=== PATIENT | female | born 1935 | race Caucasian/White ===

== ENCOUNTER → 2016-11-01 | Outpatient (CLI) | payer OTHER ==
--- NOTE | 2016-11-01 14:19 | MA ---
Screening Digital Mammogram Clinical Indications: Routine screening. Personal history of breast cancer x2 Technique: Standard cephalocaudal and mediolateral oblique projections were obtained. This examinat ion was processed by the [email or web address] computer aided detection system. Comparison: September 2015, August 2014, July 2013 and July 2012. Breast density: C; The breast tissue is moderately dense. Findings: CAD was reviewed. No suspicious findings are identified. Impression: Negative mammogram. BI-RADS 1. Recommendation: Routine screening is recommended in one year, as long as physical examination is taty ign in this patient with extremely dense breast parenchyma. [facility] will send a result letter to the patient. Negative mammography should not preclude additional workup of a clinically suspicious finding. The patient's information is entered into a reminder system with a target due date for her next mammo gram.
--- NOTE | 2016-11-01 15:40 | DX ---
DEXA Bone Mineral Densitometry Clinical Indications: Postmenopausal, post hysterectomy and oophorectomy history of fracture, Synthr oid for thyroid dysfunction, breast cancer Comparison: None Technique: Bone Mineral Densitometry (BMD) by Dual Energy X-Ray Absorptiometry (DEXA) was performed utilizing the [employer] scanner. The lumbar spine was evaluated in the AP projection. The bilat eral hips and forearm were evaluated in the AP projection. Vertebral fracture assessment was also pe rformed. AP Lumbar Spine: The L1, L2 and L3 vertebral bodies were evaluated. L4 is excluded due to degenerati ve sclerosis. BMD: 1.093 gm/cm2 T-score: -0.7 SD Z-score: 1.0 SD AP Left Hip: Total BMD: 0.870 gm/cm2 T-score: -1.1 SD Z-score: 0.8 SD AP Right Hip: Neck BMD: 0.811 gm/cm2 T-score: -1.6 SD Z-score: 0.4 SD AP Right Forearm, 10/02: BMD: 0.707 gm/cm2 T-score: -1.9 SD Z-score: 0.7 SD Vertebral Fracture Assessment: No significant fracture deformity. No prevertebral aortic calcificati on, significant marginal bone spurring, facet arthrosis, or intrinsic vertebral body sclerosis that would effect the accuracy of the lumbar spine BMD measurement. Conclusion: Considering the lowest measured site, the patient has low bone density. The ten year FRAX risk for any major osteoporotic fracture is 20.4% and for a hip fracture is 4.6%. A ccording to the recommendations of the [employer], this patient would be a good candidate for bone strengthening pharmacologic intervention. Any bone loss in this patient is probably related to aging or estrogen deficiency. To prevent osteoporosis and to promote the patient's bone density, the following recommendations shou ld be considered: 1. Pursue a regular regimen of weightbearing and muscle strengthening exercises in order to reduce t he risk of falls and fractures (as tolerated by the patient's general medical condition). 2. Ensure that daily dietary calcium uptake is maximized. 3. Consider checking the serum vitamin D level. Ensure that intake of vitamin D is 800 IU per day (f or ages 71 and older). 4. Consider follow-up DEXA scan in one year to assess the efficacy of pharmacologic intervention or in 2 years to assess the rate of bone loss if the patient follows a nonpharmacologic course.
== END ==
LOC: FIMAGING 13:17
PROVIDERS: ATTEND Family Medicine
DX: Z12.31 Encounter for screening mammogram for malignant neoplasm of breast (principal); Z85.3 Personal history of malignant neoplasm of breast; Z13.820 Encounter for screening for osteoporosis; M85.80 Other specified disorders of bone density and structure, unspecified site
CPT/HCPCS: G0202

== ENCOUNTER → 2017-11-05 | Outpatient (CLI) | payer OTHER | LOC: CIMAGING 09:17 | PROVIDERS: ATTEND Surgery | DX: Z12.31 Encounter for screening mammogram for malignant neoplasm of breast (principal); Z85.3 Personal history of malignant neoplasm of breast ==

== ENCOUNTER → 2018-07-17 | Outpatient (CLI) | payer OTHER | LOC: CIMAGING 11:06 | PROVIDERS: ATTEND Family Medicine | DX: M17.12 Unilateral primary osteoarthritis, left knee (principal); M76.892 Other specified enthesopathies of left lower limb, excluding foot; M25.462 Effusion, left knee | CPT/HCPCS: 73562-PO ==

== ENCOUNTER → 2018-11-06 | Outpatient (CLI) | payer OTHER | LOC: CIMAGING 09:04 | PROVIDERS: ATTEND Surgery | DX: Z12.31 Encounter for screening mammogram for malignant neoplasm of breast (principal) ==